=== PATIENT | female | born 1995 | race Caucasian/White ===

== ENCOUNTER 2024-04-21 12:30 | Emergency (ER) | payer OTHER ==
[2024-04-21 13:17] LABS: Bilirubin Neg (Negative); Blood, Urine Negative (Negative); Clarity Clear (Clear); Glucose, Urine (Dipstick) Normal (Negative); Ketone, Urine 15 mg/dL (Negative); Leukocyte 25 (Negative); Nitrite Negative (Negative); Protein, Urine (Dipstick) 15 mg/dl (Neg-Trace); Urobilinogen Normal mg/dL (Less than 2)
[2024-04-21 13:20] LABS: Pregnancy Test - Urine (BHCG) Negative (Negative); Pregu Control Background? CLEAR/WHITE (CLR/WHITE); Pregu Control Bar Appear? YES (CONTROL BAR)
[2024-04-21 13:37] LABS: CAUTI Indications for Culture Pelvic or flank pain; RBC/HPF 0-3 HPF (0-3)
[2024-04-21 13:39] LABS: Bacteria/HPF 2+ HPF (None Seen); Mucous/LPF 2+ LPF (<2+)
[2024-04-21 13:45] LABS: Yeast-Hyphae 1+ HPF (None Seen)
[2024-04-21 13:53] LABS: Urine Culture Reflex No No
[2024-04-21 23:40] LABS: GC by PCR, Vaginal Swab Not Detected (NotDetected)
== END 2024-04-21 14:55 | disposition home or self-care (01) ==
LOC: CSHERS 12:30
DX: B37.31 Acute candidiasis of vulva and vagina (principal)
CPT/HCPCS: 81001; 81025; 87480; 87510; 87591; 87660; 99283